=== PATIENT | male | born 1945 | race Caucasian/White ===

== ENCOUNTER → 2021-07-29 | Emergency (ER) | payer OTHER ==
[~2021-07-29] MED LIST: 0.9% SODIUM CHLORIDE 10 ML SYRINGE IVP ONE; CALCIUM CHLORIDE 100 MG/ML 10 ML SYRINGE IVP ONE; EPINEPHrine 1:10,000 [1 MG/10 ML] SYRINGE IVP ONE; EPINEPHrine 1:10,000 [1 MG/10 ML] SYRINGE ONE; MAGNESIUM SULF/STERILE WATER 4 GM/100 ML IV BAG IV ONE; SODIUM BICARBONATE [ADULT] 8.4% 50 MEQ/50 ML SYRINGE IVP ONE
== END ==
LOC: EMS 15:59
DX: I46.9 Cardiac arrest, cause unspecified (principal)
CPT/HCPCS: 92950; 99285; J0171; J3475; J3490